=== PATIENT | female | born 1995 | race Two or more races ===

== ENCOUNTER 2023-06-16 21:10 | Inpatient (IN) | payer OTHER ==
[2023-06-16] MEDS ORDERED: OXYTOCIN 20 UNITS in 0.9% NS 20 UNIT/1,000 ML INFUS.BAG IV ONE (21:47)
[2023-06-16 22:34] LABS: BASO % 0.3 % (0-2.0); EOS % 0.9 % (0-4.5); HEMOGLOBIN 12.1 GM/dL (10.7-15.3); LYMPH % 22.6 % (8-40); MCH 30.7 pg (25.7-33.7); MCHC 33.7 g/dl (32.0-36.0); MEAN CELL VOLUME 91.2 fl (80-96); MEAN PLT VOLUME 10.3 fl (7.5-11.1); MONO % 5.5 % (3.8-10.2); NEUT % 70.7 % (42.8-82.8); PLATELET COUNT 220 10^3/uL (134-434); RBC 3.95 M/mm3 (3.60-5.2); RDW 19.8 % (11.6-15.6); WHITE BLOOD COUNT 12.7 K/mm3 (4.0-10.0)
[2023-06-16 22:40] LABS: INR 0.89 (0.83-1.09); PROTHROMBIN TIME (PATIENT) 10.3 SEC (9.7-13.0)
[2023-06-16 22:42] LABS: ACTIVATED PTT 27.2 SECONDS (25.2-36.5)
[2023-06-16 22:43] LABS: POTASSIUM 4.5 mmol/L (3.5-5.1)
[2023-06-16 22:44] LABS: CALCIUM 8.9 mg/dL (8.5-10.1)
[2023-06-16 22:45] LABS: BLOOD UREA NITROGEN 9.3 mg/dL (7-18)
[2023-06-16 22:48] LABS: CREATININE 0.6 mg/dL (0.55-1.3)
[2023-06-16] MEDS ORDERED: DEXTROSE 5%-LACTATED RINGERS 1,000 ML IV SCH (23:00)
[2023-06-16 23:05] VITALS: BMI 28.5
[2023-06-16] MEDS ORDERED: WITCH HAZEL 50% (TUCKS) 40 PAD/JAR PAD TP PRN (23:05)
[2023-06-16] MEDS ORDERED: BENZOCAINE 28 GM HEMORRHOIDAL OINTMENT TP PRN (23:05)
[2023-06-16 23:13] LABS: CORD BASE EXCESS -5.2 mmol/L (0-2); CORD BASE EXCESS -7.7 mmol/L (0-2); CORD HCO3 20.7 mmHg (20-29); CORD HCO3 22.4 mmHg (20-29); CORD PCO2 41.6 mmHg (30-78); CORD PCO2 64.9 mmHg (30-78); CORD pH 7.156 (7.14-7.44); CORD pH 7.314 (7.14-7.44)
[2023-06-16] MEDS ORDERED: OXYTOCIN 20 UNITS in 0.9% NS 20 UNIT/1,000 ML INFUS.BAG IV SCH (23:15)
[2023-06-17] MEDS: ACETAMINOPHEN 325 MG TABLET (FP) PO PRN ×3 (00:15→20:31)
[2023-06-17] MEDS ORDERED: ACETAMINOPHEN 325 MG TABLET (FP) ONE (00:15)
[2023-06-17 08:18] LABS: BASO % 0.2 % (0-2.0); EOS % 0.5 % (0-4.5); HEMATOCRIT 33.6 % (32.4-45.2); HEMOGLOBIN 11.4 GM/dL (10.7-15.3); LYMPH % 16.2 % (8-40); MCH 30.8 pg (25.7-33.7); MCHC 33.8 g/dl (32.0-36.0); MEAN PLT VOLUME 10.5 fl (7.5-11.1); MONO % 4.4 % (3.8-10.2); NEUT % 78.7 % (42.8-82.8); PLATELET COUNT 180 10^3/uL (134-434); RBC 3.69 M/mm3 (3.60-5.2); WHITE BLOOD COUNT 14.8 K/mm3 (4.0-10.0)
[2023-06-17] MEDS ORDERED: DIPHTH,PERTUSS(ACELL),TET 0.5 ML DISP.SYRIN IM ONE (10:00)
[2023-06-17] MEDS: PRENATAL VITAMINS W/ FOLIC ACID TABLET (FP) PO SCH (10:31)
[2023-06-17] MEDS: IBUPROFEN 600 MG TABLET (FP) PO PRN ×2 (10:31→16:25)
[2023-06-18] MEDS: IBUPROFEN 600 MG TABLET (FP) PO PRN ×2 (02:42→11:01)
[2023-06-18] MEDS: ACETAMINOPHEN 325 MG TABLET (FP) PO PRN (08:59)
[2023-06-18] MEDS: PRENATAL VITAMINS W/ FOLIC ACID TABLET (FP) PO SCH (09:00)
[2023-06-18 09:54] VITALS: RESP 16; TEMP 98.2
[2023-06-18 11:05] VITALS: BP 129/78; PULSE 90
== END 2023-06-18 13:45 | disposition home or self-care (01) | DRG 560 ==
LOC: JLDR 21:10 → J3W 06-17 00:32
PROVIDERS: ADMIT Obstetrics & Gynecology Maternal & Fetal Medicine; ATTEND Obstetrics & Gynecology Maternal & Fetal Medicine
PROC: 10E0XZZ Delivery of Products of Conception, External Approach (ICD-10-PCS; principal; 2023-06-16)
PROC: 0HQ9XZZ Repair Perineum Skin, External Approach (ICD-10-PCS; 2023-06-16)
DX: O70.0 First degree perineal laceration during delivery (principal); Z3A.39 39 weeks gestation of pregnancy; Z37.0 Single live birth
CPT/HCPCS: 36415; 36600; 80048; 82803; 85025; 85610; 85730; 86780; 86850; 86900; 86901; 88307-TC; 90715